=== PATIENT | female | born 1995 | race Caucasian/White ===

== ENCOUNTER 2017-04-28 06:05 | Inpatient (IN) | payer OTHER ==
[2017-04-28] MEDS ORDERED: ceFOXitin 2 GM IVPREMIX* 2 GM/50 ML BAG ONE (06:51)
[2017-04-28] MEDS ORDERED: Morphine PF AMP (0.5MG/ML)* 5 MG/10 ML AMP ONE (07:34)
[2017-04-28] MEDS ORDERED: Sodium Citrate/Citric Acid* 15 ML UDC ONE (07:39)
[2017-04-28] MEDS ORDERED: fentaNYL* 50 MCG/ML 2 ML VIAL (100 MCG VIAL) IV PRN (08:24)
[2017-04-28] MEDS ORDERED: DiMENhydriNATE IV* 50 MG/ML VIAL IV PUSH PRN ×2 (08:24→08:25)
[2017-04-28] MEDS ORDERED: Ondansetron INJ* 2 MG/ML VIAL IV PRN ×2 (08:24→08:25)
[2017-04-28] MEDS ORDERED: HYDROmorphone* 1 MG/ML 1 ML SYR IV PRN (08:24)
[2017-04-28] MEDS ORDERED: diPHENhydraMINE IV* 50 MG/ML 1 ml VIAL (BENADRYL) IV PRN (08:25)
[2017-04-28] MEDS ORDERED: Scopolamine 1.5 mg* PATCH TRANSDERM PRN (08:25)
[2017-04-28] MEDS ORDERED: Naloxone* 0.4 MG/ML 1 ML VIAL IV PRN (08:25)
[2017-04-28] MEDS ORDERED: HYDROcodone/ACETAMIN 5-325 MG* 1 TAB PO PRN (08:25)
[2017-04-28] MEDS ORDERED: Nalbuphine* 20 MG/ML 1 ML VIAL IV PRN ×2 (08:25)
[2017-04-28] MEDS ORDERED: Naloxone* 2 MG in NS 0.9% 250 ML* 250 ML IV PRN (08:25)
[2017-04-28] MEDS ORDERED: OXYTOCIN* 10 UNITS/ML 1 ML VIAL ONE (08:30)
[2017-04-28] MEDS: Ketorolac INJ* 30 MG/ML 1 ML VIAL IV PRN ×3 (10:17→22:00)
[2017-04-28] MEDS ORDERED: Glycerin ADULT SUPP PR PRN (11:35)
[2017-04-28] MEDS ORDERED: Witch Hazel PAD* JAR TOPICAL PRN (11:35)
[2017-04-28] MEDS ORDERED: Dibucaine 1% 28.35 GM TUBE PR PRN (11:35)
[2017-04-28] MEDS: oxyCODONE/Acetamin 5/325 MG* TAB PO PRN ×2 (12:50→18:12)
[2017-04-28] MEDS: Docusate CAP* 100 MG PO SCH ×2 (13:26→21:59)
[2017-04-28] MEDS: Simethicone CHEW TAB* 80 MG PO SCH ×3 (13:26→21:59)
[2017-04-29] MEDS: oxyCODONE/Acetamin 5/325 MG* TAB PO PRN ×6 (02:20→23:36)
[2017-04-29] MEDS: Ketorolac INJ* 30 MG/ML 1 ML VIAL IV PRN (04:15)
[2017-04-29 06:55] LABS: Hematocrit 31 % (35-47); Hemoglobin 10.4 g/dl (12.0-16.0); Mean Corpuscular HGB Conc 33 g/dl (31-36); Mean Corpuscular Hemoglobin 31 pg (27-31); Mean Corpuscular Volume 93 fL (80-97); Mean Platelet Volume 9 um3 (7.4-10.4); Red Blood Count 3.39 10^6/ul (4.0-5.4); Red Cell Distribution Width 16 % (10.5-15); White Blood Count 8.9 10^3/ul (3.5-10.8)
[2017-04-29] MEDS ORDERED: Ferrous Gluconate TAB* 324 MG TAB PO SCH (09:00)
[2017-04-29] MEDS: Simethicone CHEW TAB* 80 MG PO SCH ×4 (09:27→23:37)
[2017-04-29] MEDS: Docusate CAP* 100 MG PO SCH ×3 (09:27→19:46)
--- NOTE | 2017-04-29 10:37 | OP ---
DATE OF OPERATION: 04/28/17 - ROOM #[id number] DATE OF : 89 SURGEON: Maximino Mejia MD PSYCH SOCIAL WORKER: Anjana Ghotra CNM ANESTHESIOLOGIST: Dr. Olivares. ANESTHESIA: Spinal. PRE-OP DIAGNOSES: History of previous section, at 39 plus 3 weeks' gestation, and satisfied parity. POST-OP DIAGNOSES: History of previous section, at 39 plus 3 weeks' gestation, and satisfied parity. OPERATIVE PROCEDURE: Repeat low transverse section and bilateral tubal ligation with fimbriectomy. INDICATIONS: This patient is a 21-year-old 2, para 1-0-0-1, who presented at 39 plus 3 weeks' gestation today for her repeat section and tubal ligation. The patient had been extensively counseled for the procedure in the office and she had expressed strong desire for permanent sterilization several times during the . Sterilization consent was signed over a month ago. ESTIMATED BLOOD LOSS: 600 cc. URINE OUTPUT: 250 cc. IV FLUIDS: 2100 cc lactated Ringer's. MATERIALS TO LAB: Cord blood and bilateral tube segments. FINDINGS: Normal-appearing uterus, fallopian tubes, and ovaries. Delivery was productive of a 7-pound 8-ounce female with 's of 9 and 9. Time of delivery was 8:21. COMPLICATIONS: None. DESCRIPTION OF PROCEDURE: The risks, benefits, and alternatives were described to the patient, and informed consent was obtained. The patient was taken to the operating room with IV running, where spinal anesthesia was induced and found to be adequate. The patient was prepped and draped in normal sterile fashion in the dorsal supine position with a leftward tilt. A Pfannenstiel skin incision was made with a scalpel through the patient's previous incision. This was carried down to the underlying fascia using the scalpel. The fascia was scored in the midline, and the incision was extended using Reynolds scissors. The fascia was dissected off the underlying rectus muscles using blunt and sharp dissection. The rectus muscles were in the midline using dissection with a Nettie clamp. The peritoneum was then entered bluntly. A bladder blade was placed. A bladder flap was created sharply using Metzenbaum scissors. A low transverse uterine incision was then made with the scalpel. This was carried down to the amniotic membranes. The membranes were then ruptured, productive of clear fluid. The uterine incision was extended using blunt traction. The head was elevated to the level of the incision, and, with fundal pressure, the head delivered without difficulty. The shoulders then were also both delivered and the body followed. The had excellent tone and cried immediately on delivery. The cord was doubly clamped and cut. The was then handed to the awaiting electric welder. Cord blood was collected. The placenta was delivered with manual extraction. The uterus was then exteriorized and cleared of all clots and debris. The uterine incision was then reapproximated using 0 Polysorb in a running-locked fashion. A second layer of imbricating 0 Polysorb sutures was then also placed for good hemostasis. The posterior cul-de-sac was irrigated with saline. The distal half of the right fallopian tube was then clamped off with a long Nettie clamp. A 3-0 Polysorb tie was placed and tied down. A second stitch was then placed just above this tie, also with 3-0 Polysorb. The distal tube, including the fimbria was then excised with Metzenbaum scissors. There was excellent hemostasis present. The same was performed on the left side without difficulty. The uterus was then returned to the abdomen. The incision and both tubal sites were reinspected and still noted to be hemostatic. The peritoneum was closed with 3-0 Polysorb in a running fashion. The fascia was closed with 0 Polysorb in a running fashion. The subcutaneous tissues were copiously irrigated and made hemostatic using the Bovie. The subcutaneous tissues were then reapproximated using 3-0 Polysorb in interrupted sutures. The skin was then closed with 4-0 Monocryl in a subcuticular stitch. Mastisol and steristrips were applied. A sterile bandage was then placed over the incision. The patient tolerated the procedure well. Sponge, lap, and needle counts were correct x2. [id number]/[facility] #: [id number] [facility]
[2017-04-29] MEDS: Ibuprofen TAB* 600 MG PO SCH ×3 (11:27→23:36)
[2017-04-30] MEDS: oxyCODONE/Acetamin 5/325 MG* TAB PO PRN ×2 (04:15→07:57)
[2017-04-30] MEDS: Ibuprofen TAB* 600 MG PO SCH ×2 (05:47→11:41)
[2017-04-30] MEDS: Docusate CAP* 100 MG PO SCH (07:53)
[2017-04-30] MEDS: Simethicone CHEW TAB* 80 MG PO SCH (07:54)
[2017-04-30 08:05] VITALS: BP 111/64
[2017-05-01] MEDS ORDERED: Scopolomine PATCH Remove* 1 NOTE MISC PATCH OFF PRN (08:25)
== END 2017-04-30 11:50 | disposition home or self-care (01) | DRG 766 ==
LOC: MCHOB 06:05
PROVIDERS: ADMIT Obstetrics & Gynecology; ATTEND Obstetrics & Gynecology
PROC: 0UB70ZZ Excision of Bilateral Fallopian Tubes, Open Approach (ICD-10-PCS; 2017-04-28)
PROC: 10907ZC Drainage of Amniotic Fluid, Therapeutic from Products of Conception, Via Natural or Artificial Opening (ICD-10-PCS; 2017-04-28)
PROC: 10D00Z1 Extraction of Products of Conception, Low, Open Approach (ICD-10-PCS; principal; 2017-04-28 07:45)
DX: O34.211 Maternal care for low transverse scar from previous cesarean delivery (principal); Z30.2 Encounter for sterilization; Z37.0 Single live birth; Z3A.39 39 weeks gestation of pregnancy
CPT/HCPCS: 36415; 85025; 88302; A9270-GY; J0694; J1885; J2590